=== PATIENT | male | born 1960 | race Caucasian/White ===

== ENCOUNTER → 2016-06-18 | Outpatient (CLI) | payer BC ==
[~2016-06-18] MED LIST: FLUT0.15 NAE
--- NOTE | 2016-06-18 08:18 | DIAGNOSTIC IMAGING REPORT ---
CHEST 2 VIEWS ROUTINE CLINICAL HISTORY: R63.4,R53.83 COMPARISON STUDY: No previous studies for comparison. FINDINGS: The bones soft tissues and hemidiaphragms are normal. The cardiomediastinal silhouette is normal. The lungs are clear. The pulmonary vasculature is normal. IMPRESSION: Negative chest. Electronically signed by: Marvin Jack M.D. 06/18/2016 8:17 AM Dictated Date/Time: 06/18/2016 8:16 AM
== END | disposition home or self-care (01) ==
LOC: C.RAD 07:41
PROVIDERS: ATTEND Family Medicine
DX: R63.4 Abnormal weight loss (principal); R53.83 Other fatigue

== ENCOUNTER → 2016-07-08 | Outpatient (CLI) | payer BC ==
--- NOTE | 2016-07-10 14:45 | POLYSOMNOGRAPH REPORT ---
CLINICAL DATA: A 56-year-old male with a BMI of 19.[address] Alejandro and Dr. Richard Sargent for evaluation of sleep apnea. The patient has a history of sleep apnea in the past and has been treated with both CPAP and an oral appliance. He is not using either of these because he is unable to tolerate them. He has had significant amount of weight loss. On the evening of 07/08/2016, a home sleep apnea test was performed using a [employer] type 3 monitor. RECORDING RESULTS: Total recording time was 10 hours. The patient's estimated sleep time and monitoring time was 6.6 hours. RESPIRATORY DATA: Mild sleep apnea was documented. The HENRI was 11.7. There were 27 obstructive, 4 mixed, and 1 central apneic episode. There were 45 hypopneic episodes. The longest respiratory event was 52 seconds. OXIMETRY DATA: Very mild nocturnal hypoxemia was seen. Oxygen nicole was 86%. Mean saturation was 94%. Time below 89% was 2 minutes. HEART RATE DATA: Heart rates ranged from 47 to 57 beats per minute. SNORING DATA: Intermittent snoring was heard throughout the night. IMPRESSION: Mild sleep apnea/hypopnea with an HENRI of 11.7 without significant nocturnal hypoxemia. RECOMMENDATIONS: The patient should continue to practice good sleep hygiene. Treatment of sleep apnea would be dependent upon tolerance of treatment and symptoms. NIKO
== END | disposition home or self-care (01) ==
LOC: C.NEUR 09:25
PROVIDERS: ATTEND Internal Medicine Pulmonary Disease
DX: G47.33 Obstructive sleep apnea (adult) (pediatric) (principal)

== ENCOUNTER → 2016-10-05 | Outpatient (CLI) | payer BC ==
--- NOTE | 2016-10-05 14:18 | DIAGNOSTIC IMAGING REPORT ---
CT OF THE CHEST WITHOUT IV CONTRAST CLINICAL HISTORY: Dyspnea. Weight loss. Possible early onset interstitial lung disease. COMPARISON STUDY: Chest radiograph June 18, 2016. CT DOSE: 234.48 mGy.cm TECHNIQUE: Axial images of the chest were obtained without IV contrast. Images were reviewed in the axial, sagittal, and coronal planes. IV contrast was not administered for this examination. FINDINGS: No enlarged axillary, mediastinal or hilar lymph nodes are present. The size of the heart is normal. Central airways are patent. There is no consolidation to suggest pneumonia. Mild symmetric biapical subpleural opacities suggest scarring. There is no traction bronchiectasis. No honeycombing is present. Lung volumes appear normal. Bony thorax is unremarkable. A right hepatic lobe calcification is of no clinical significance. IMPRESSION: 1. No acute intrathoracic findings. 2. No CT evidence of interstitial lung disease. 3. Symmetric mild biapical subpleural opacities consistent with scarring. Electronically signed by: Kelvin Irby M.D. 10/05/2016 2:17 PM Dictated Date/Time: 10/05/2016 2:12 PM
--- NOTE | 2016-10-07 08:45 | PULMONARY FUNCTION TEST ---
Interpretation based on ATS criteria. SPIROMETRY: Within normal limits. LUNG VOLUMES: Mildly decreased RV possibly from obesity. DIFFUSION CAPACITY: Within normal limits. INTERPRETATION: Normal spirometry/pulmonary function studies.
== END | disposition home or self-care (01) ==
LOC: C.RC 12:54
PROVIDERS: ATTEND Internal Medicine Critical Care Medicine
DX: R06.00 Dyspnea, unspecified (principal)